=== PATIENT | female | born 1955 | race Caucasian/White ===

== ENCOUNTER 2018-06-29 00:36 | Emergency (ER) | payer OTHER, SELFPAY ==
[2018-06-29 00:40] VITALS: BP 157/94; PULSE 76; RESP 20; TEMP 36.6; O2SAT 94
--- NOTE | 2018-06-29 00:48 | DI.RAD.S_ITS ---
PROCEDURE: XR TIBIA FUBULA RT 2V INDICATIONS: Fall TECHNIQUE: 2 views of the tibia and fibula were acquired. COMPARISON: [facility], CR, XR ANKLE RT MIN 3V, 06/29/2018, 0:52. FINDINGS: Bones: No dislocations. No suspicious bony lesions. There is a proximal diaphyseal fibular fracture accompanying the distal tibial diagonal metadiaphyseal junction fracture also described during ankle plain film study today. Soft tissues: No suspicious soft tissue calcifications or masses. IMPRESSION: Proximal fibular and distal tibial fractures as discussed. These are mildly displaced each. Note: These findings are concordant with the preliminary interpretation. Dictated by: Jamar Ortiz M.D. on 06/29/2018 at 8:14 Approved by: Jamar Ortiz M.D. on 06/29/2018 at 8:15
--- NOTE | 2018-06-29 00:48 | DI.RAD.S_ITS ---
PROCEDURE: XR ANKLE RT MIN 3V INDICATIONS: Fall TECHNIQUE: 3 views of the ankle were acquired. COMPARISON: [facility], CR, XR TIBIA FIBULA RT 2V, 06/29/2018, 0:52. FINDINGS: Bones: No dislocations. Ankle mortise is normally aligned. No suspicious bony lesions. There is a diagonal mildly displaced fracture through the distal metadiaphyseal junction of the right tibia, which does not extend into the articular surface. Soft tissues: No tibiotalar joint effusion. Achilles tendon appears normal. IMPRESSION: Distal tibial diagonal mildly displaced fracture of the metadiaphyseal junction. Please also refer to tibia/fibula plain films obtained today. Dictated by: Jamar Ortiz M.D. on 06/29/2018 at 8:13 Approved by: Jamar Ortiz M.D. on 06/29/2018 at 8:14
--- NOTE | 2018-06-29 00:51 | ED_ITS ---
HPI - Extremity Injury (Lower) General Chief Complaint: Extremity Injury, Lower Stated Complaint: Thinks broke R ankle Time Seen by Provider: 06/29/18 00:46 Source: patient Mode of arrival: ambulatory Limitations: no limitations History of Present Illness HPI Narrative: The patient injured her right leg about 10:00 p.m. tonight. She was walking her dog outside her house. She slipped and fell sideways. Chest pain and swelling around the right ankle, and the right distal tibia. She was able to pull herself to standing bold on to a fence, but is not truly ambulatory. There were no other injuries in the fall. She has pain and swelling to right leg, no other deformities. There is no numbness in the right leg. She takes medications for osteopenia. Related Data Previous Rx's Medication Instructions Recorded hydrocodone-acetaminophen [Reading] 1 tab PO Q4-6H PRN #20 tab 06/29/18 Review of Systems Review of Systems ROS Unobtainable: All systems reviewed & are unremarkable except as noted in HPI and below Constitutional Denies weakness ENT Ears, Nose, Mouth, and Throat: Denies dizziness and Reports other (No pain) Cardiovascular Denies chest pain, Denies syncope and Denies dyspnea Respiratory Denies dyspnea Musculoskeletal Reports as per HPI and Denies numbness Neurologic Denies dizziness, Denies syncope, Denies numbness and Denies weakness PFSH Medical History Closed right hip fracture (Acute) Osteopenia (Acute) Surgical History No pertinent past surgical history (Acute) Social History Smoking Status: Current every day smoker Social History Smoking Status: Current every day smoker Exam Initial Vital Signs Initial Vital Signs: Vital Signs Temperature 98 F 06/29/18 00:40 Pulse Rate 76 06/29/18 00:40 Respiratory Rate 20 06/29/18 00:40 Blood Pressure 157/94 H 06/29/18 00:40 Pulse Oximetry 94 06/29/18 00:40 Const General: cooperative and well developed Nutritional Appearance: well nourished Orientation: alert, awake, oriented x3 and not confused Skin Trauma: other (Right leg bruising) Neuro General: alert, oriented x3, gait abnormal and no focal motor deficits Sensory Exam: no sensory deficits noted Extrem General: full ROM, no clubbing, cyanosis or edema and no calf tenderness Other: Contusion to the right anterior tibia with swelling. Tenderness with crepitus over the right proximal fibula. Contusion to the right lateral malleolus without deformity. Tenderness with crepitus over the right medial malleolus. Tenderness over the lateral malleolus without deformity. No ankle laxity. No foot tenderness or deformity. The dorsalis pedis pulse is intact on the right foot. She has normal capillary refill in the right foot. Procedures Orthopedic Splinting/Casting Injury #1: Side: right Lower Extremity Injury Location: lower leg and ankle Lower Extremity Immobilizer: posterior splint and stirrup splint Other Orthopedic Equipment: crutches Post splinting neuro exam: intact Post splinting vascular exam: intact Placed by: Provider Course Orders Ordered: ED Orders 06/29/18 00:48 XR ankle RT min 3V Stat XR tibia fibula RT 2V Stat Discontinued Medications Hydrocodone Bitart/Acetaminophen (Vicodin Prepack) 1 bottle MISC SEEINSTR ONE Stop: 06/29/18 01:48 Last Admin: 06/29/18 01:57 Dose: 1 bottle Morphine Sulfate (Morphine) 4 mg SUBCUT NOW ONE Stop: 06/29/18 01:19 Last Admin: 06/29/18 01:26 Dose: 4 mg Vital Signs - 8 hr 06/29/18 00:40 06/29/18 01:44 Temperature 98 F Pulse Rate 76 Pulse Rate [Right Dorsalis Pedis] 78 Respiratory Rate 20 Blood Pressure 157/94 H Pulse Oximetry 94 MDM - Extremity Injury (Lower) Imaging Data Right tib-fib and right ankle x-ray:: My impression: Nondisplaced right Maisonneuve fracture. Discharge Plan Departure Patient Disposition: Home Clinical Impression: Closed Maisonneuve fracture of left lower extremity Qualifiers: Encounter type: initial encounter Fracture alignment: nondisplaced Qualified Code(s): S82.865A - Nondisplaced Maisonneuve's fracture of left leg, initial encounter for closed fracture Instructions: Ankle Fracture Activity Restrictions/Additional Instructions: Keep the splint in place. Use crutches when moving. Reading every 4-6 hours as needed for pain. Elevate the right leg frequently. Follow-up locally for orthopedic care, or consult with your [place] physician for care there. You likely need surgery. Return to the ER as needed. I will give you contact information for the local orthopedic surgeon. Prescriptions: New hydrocodone-acetaminophen [Reading] 5-325 mg tablet 1 tab PO Q4-6H PRN (Reason: pain) Qty: 20 RF: 0 Referrals: Josesito Acevedo MD [Physician] -
[2018-06-29] MEDS: MORPHINE 4 MG/ML INJ SUBCUT (01:26)
[2018-06-29 01:44] VITALS: PULSE 78
[2018-06-29] MEDS: HYDROCODONE/ACET 5/325 PREPACK 1 BOTTLE MISC (01:57)
[2018-06-29 02:14] VITALS: BP 104/67; PULSE 87; RESP 15; O2SAT 98
== END 2018-06-29 02:14 | disposition home or self-care (01) ==
PROVIDERS: Emergency Provider Emergency Medicine
DX: S82.865A Nondisplaced Maisonneuve's fracture of left leg, initial encounter for closed fracture (principal); W01.0XXA Fall on same level from slipping, tripping and stumbling without subsequent striking against object, initial encounter; Y93.K1 Activity, walking an animal
CPT/HCPCS: 73590; 73610; 99282; 99283; J2270

== ENCOUNTER → 2020-12-17 12:54 | Outpatient (CLI) | payer SELFPAY | PROVIDERS: PCP Physician Assistant; Referring Provider Physician Assistant; Visit Provider Physician Assistant | DX: R35.0 Frequency of micturition (principal) | CPT/HCPCS: 87086 ==